=== PATIENT | female | born 1960 | race Two or more races ===

== ENCOUNTER 2023-07-14 19:59 | Emergency (ER) | payer OTHER ==
[~2023-07-14] VITALS: Ht 160 cm; Wt 59.0 kg
[2023-07-14 20:30] VITALS: BP 107/62; PULSE 114; RESP 16; O2SAT 98
[2023-07-14] MEDS: ALBUTEROL SULF 2.5 MG/0.5ML(0.5%) NEB SOLN NEB ONE (20:41)
[2023-07-14 20:48] LABS: Base Excess -3.5 mmol/L (-2.0-2.0)
[2023-07-14 21:08] LABS: Hemoglobin 7.6 g/dL (12.2-16.2); Nucleated Red Blood Cells % 0.1 %; Red Cell Distribution Width 16.6 % (11.8-14.3)
[2023-07-14 21:09] LABS: Basophils # (auto) 0 10 ^3/uL (0-0.2); Basophils % (auto) 0.4 % (0.0-2.0); Eosinophils # (auto) 0.2 10 ^3/uL (0-0.8); Eosinophils % (auto) 1.8 % (0.0-7.0); Hematocrit 23.6 % (36.0-46.0); Lymphocytes # (auto) 0.9 10 ^3/uL (0.4-5.4); Lymphocytes % (auto) 8.2 % (10.0-50.0); Mean Corpuscular Hemoglobin 28.7 pg (28.0-32.0); Mean Corpuscular Hgb Conc. 32.1 g/dL (32.0-36.0); Mean Corpuscular Volume 89.6 fL (80.0-100.0); Monocytes # (auto) 0.8 10 ^3/uL (0-1.3); Monocytes % (auto) 7.6 % (0.0-12.0); Neutrophils # (auto) 8.7 10 ^3/uL (1.6-8.6); Red Blood Cells 2.64 10^6/uL (4.0-5.20); White Blood Cell 10.6 10^3/uL (4.4-10.8)
[2023-07-14 21:25] LABS: Urine Bacteria MOD /hpf (None Seen); Urine Blood 3+ /uL (Negative); Urine Clarity CLOUDY (Clear); Urine Color Yellow (Yellow); Urine Mucus FEW (None Seen); Urine Protein, UAD 1+ (Negative); Urine Urobilinogen Normal (Negative); Urine WBC 206 /hpf (0 - 5); Urine WBC Clumps PRESENT /hpf (None Seen); Urine pH 5.5 (5.0-8.0)
[2023-07-14 21:29] LABS: Alanine Aminotransferase 21 U/L (7-40); Albumin 2.7 g/dL (3.2-4.8); Alkaline Phosphatase 104 U/L (46-116); Anion Gap 10 (5-15); Aspartate Aminotransferase 87 U/L (13-40); BUN/Creatinine Ratio 14.6 (10.0-20.0); Blood Urea Nitrogen 13 mg/dL (9-23); Calcium 8.9 mg/dL (8.7-10.4); Carbon Dioxide 22 mmol/L (20-30); Chloride 106 mmol/L (98-107); Glucose 90 mg/dL (74-106); Magnesium 1.9 mg/dL (1.6-2.6); Potassium 4.4 mmol/L (3.5-5.1); Sodium 138 mmol/L (136-145); Total Protein 5.1 g/dL (5.7-8.2)
[2023-07-14] MEDS: VANCOMYCIN 1GM/200ML 200 ML IV ONE (22:05)
[2023-07-14] MEDS: PIPERACILLIN-TAZO 4.5GM 100 ML IV ONE (22:05)
[2023-07-14] MEDS: IOHEXOL 350 MG/ML 100ML IJ ONE (23:22)
[2023-07-14 23:40] LABS: INR 1.16 (0.9-1.15); Partial Thromboplastin Time 33.6 SEC (24.5-34.5); Prothrombin Time 12.1 sec (9.3-11.8)
== END 2023-07-14 23:19 | disposition left against medical advice (07) ==
LOC: ER 19:59 → EDBD 19:59 → ER 23:19
DX: N39.0 Urinary tract infection, site not specified (principal); D64.9 Anemia, unspecified; R09.02 Hypoxemia; R79.89 Other specified abnormal findings of blood chemistry
CPT/HCPCS: 36415; 36600; 80053; 81001; 82805; 83605; 83735; 83880; 84484; 85025; 85610; 85730; 86850; 86900; 86901; 87040; 93005; 94640